=== PATIENT | female | born 1975 | race Caucasian/White ===

== ENCOUNTER 2019-03-29 11:56 | Emergency (ER) | payer MEDICAID, SELFPAY ==
[2019-03-29 11:56] VITALS: BP 199/114; PULSE 71; RESP 16; TEMP 36.8; O2SAT 97; BMI 47.5
[2019-03-29 12:16] VITALS: BP 168/93; PULSE 70; RESP 16; O2SAT 97
--- NOTE | 2019-03-29 12:20 | EKG12_ITS ---
Test Reason : HTN Blood Pressure : / mmHG Vent. Rate : 070 BPM Atrial Rate : 070 BPM P-R Int : 174 ms QRS Dur : 084 ms QT Int : 394 ms P-R-T Axes : 012 007 006 degrees QTc Int : 425 ms Normal sinus rhythm Poor R wave progression Abnormal ECG Confirmed by STEPHANIE CONNER, FLOYD ([id number]), purchasing expeditor ANATOLY EDWARDS ([id number]) on 03/31/2019 4:04:03 PM Referred By: ZOE Confirmed By:FLOYD BROWN MD
[2019-03-29] MEDS: Ketorolac 30 MG/ML Syringe IV (12:49)
[2019-03-29 13:04] LABS: Basophil# 0.04 X10^3/uL; Basophil% 0.4 % (0-1); Eosinophil# 0.18 X10^3/uL; Eosinophils% 1.8 % (0-5); Hematocrit 38.7 % (37-47); Hemoglobin 12.7 g/dl (12.0-15.0); Mean Corp Hgb Conc 32.8 g/gl (32-36); Mean Corpuscular Hgb 27.5 pg (27.0-32.0); Mean Corpuscular Volume 83.8 fL (81-99); Mean Platelet Vol. 10.1 fl (6.2-12.0); Monocyte# 0.81 X10^3/uL; Monocyte% 8.3 % (0-10); Neutrophil % 51.4 % (47-70); Platelet Count 282 K/mm3 (150-450); RBC Distribution Width CV 13.9 % (11.6-14.6); RBC Distribution Width SD 41.7 fl (35.1-43.9); Red Blood Count 4.62 M/mm3 (4.2-5.4); White Blood Count 9.7 K/mm3 (4.4-11.0)
[2019-03-29 13:10] LABS: POSITIVE COUNT NO; POSITIVE DIFFERENTIAL NO; POSITIVE MORPHOLOGY NO
[2019-03-29 13:11] LABS: Anion Gap 7 (5-15); BUN 15 mg/dL (7-18); BUN/Creat Ratio 19.6 RATIO (10-20); Calcium,Total 8.3 mg/dL (8.5-10.1); Chloride 105 mmol/L (98-107); Creatinine, Serum 0.77 mg/dL (0.55-1.02); EST Glomerular Filtration Rate 88 mL/min (>60); Est Glom Filt Rate - Afr Amer 107 mL/min (>60); Estimated Creatinine Clearance 86.52 ml/min; Glucose 95 mg/dL (74-106); Potassium 3.7 mmol/L (3.5-5.1); Sodium Level 137 mmol/L (136-145)
--- NOTE | 2019-03-29 14:22 | ED.VISSUMM ---
- ER Visit Summary Date of Service: 03/29/19 Chief Complaint: Hypertension History of Present Illness: The patient is a 43 F with history of hypertension sent in by [facility]. Patient had left knee revision surgery on March 27 and . [facility] nurse visited for the first time today. Blood pressure was elevated and patient was told to the emergency room. She states her diastolic pressure was between 100-115 and her systolic pressure was between 190 and 205. Patient reports a mild headache but states she has headaches regularly and does not know if it is related to her blood pressure. She did state that her blood pressure was high a couple times during her recent hospital stay. She did recently have her medications adjusted by her primary care physician. Physical Examination: Blood pressure in triage was 199/114. At the time of my examination blood pressure is 168/93. Remainder of vitals are normal. Patient sitting upright in bed no acute distress. Heart is regular rate and rhythm. Lungs sounds are clear. Abdomen is soft nontender. Extremity examination reveals left knee dressing clean with no surrounding signs of cellulitis. Test Results: CBC and chemistry studies unremarkable. EKG is sinus at 70 with no acute ischemia. Emergency Department Course and Treatment: Patient was initially given Toradol for her headache. Blood pressure remained unchanged. She was given a dose of labetalol 10 mg IV. At this time blood pressure is 141/82. Patient is resting comfortably on repeat exam. She does have a home blood pressure cuff and will monitor blood pressure twice a day for the next several days. If she has any further symptoms she is to return to the emergency room. Otherwise she is to follow-up with her primary care physician next week with her blood pressure readings. Treatment Plan: [] Disposition: Discharge Impression: Hypertension, improved This note was generated with [employer] software. It may contain incorrect words, spelling, and punctuation that were not noted in review of the chart prior to signing ED Disposition - Plan for ED Patient: Disposition: Home or Assisted Living Instructions: ED HTN Established Referrals: Ezio Lu MD [Primary Care Provider] - 5-7 Days
[2019-03-29 14:23] VITALS: BP 141/82; PULSE 66; RESP 20; O2SAT 97
--- NOTE | 2019-03-29 14:25 | ED.DCSUM_ITS ---
- ER Visit Summary Date of Service: 03/29/19 Chief Complaint: Hypertension History of Present Illness: The patient is a 43 F with history of hypertension sent in by [facility]. Patient had left knee revision surgery on March 27 and . Home health nurse visited for the first time today. Blood pressure was elevated and patient was told to the emergency room. She states her diastolic pressure was between 100-115 and her systolic pressure was between 190 and 205. Patient reports a mild headache but states she has headaches regularly and does not know if it is related to her blood pressure. She did state that her blood pressure was high a couple times during her recent hospital stay. She did r ecently have her medications adjusted by her primary care physician. Physical Examination: Blood pressure in triage was 199/114. At the time of my examination blood pressure is 168/93. Remainder of vitals are normal. Patient sitting upright in bed no acute distress. Heart is regular rate and rhythm. Lungs sounds are clear. Abdomen is soft nontender. Extremity examination reveals left knee dressing clean with no surrounding signs of cellulitis. Test Results: CBC and chemistry studies unremarkable. EKG is sinus at 70 with no acute ischemia. Emergency Department Course and Treatment: Patient was initially given Toradol for her headache. Blood pressure remained unchanged. She was given a dose of labetalol 10 mg IV. At this time blood pressure is 141/82. Patient is resting comfortably on repeat exam. She does have a home blood pressure cuff and will monitor blood pressure twice a day for the next several days. If she has any further symptoms she is to return to the emergency room. Otherwise she is to follow-up with her primary care physician next week with her blood pressure readings. Treatment Plan: [] Disposition: Discharge Impression: Hypertension, improved This note was generated with [employer] dictation software. It may contain incorrect words, spelling, and punctuation that were not noted in review of the chart prior to signing ED Disposition - Plan for ED Patient: Disposition: Home or Assisted Living Instructions: ED HTN Established Referrals: Ezio Lu MD [Primary Care Provider] - 5-7 Days
[2019-03-29 14:45] VITALS: BP 149/89; PULSE 63; RESP 16; O2SAT 97
== END 2019-03-29 14:46 | disposition home or self-care (01) ==
PROVIDERS: Emergency Provider Emergency Medicine; Family Provider Family Medicine; PCP Family Medicine
DX: I10 Essential (primary) hypertension (principal); E78.00 Pure hypercholesterolemia, unspecified; F32.9 Major depressive disorder, single episode, unspecified; Z79.84 Long term (current) use of oral hypoglycemic drugs; Z79.899 Other long term (current) drug therapy
CPT/HCPCS: 80048; 85025; 93005; 96374; 96375; 99284; A4216

== ENCOUNTER → 2021-08-26 12:41 | Outpatient (CLI) | payer MEDICAID, SELFPAY ==
[2021-08-26] MEDS: Methacholine Chloride 18 ml neb kit INHALATION (12:56)
--- NOTE | 2021-08-26 15:37 | BRONCHALL_ITS ---
Bronchoprovocation Challenge Bronchoprovocation Challenge Bronchoprovocation Challenge: BRONCHOPROVOCATION STUDY INTERPRETATION Brief HPI: Patient is a 46 year old female, currently under the care of Dr. Grant, who presents to [facility] for a bronchoprovocation study secondary to diagnosis of dyspnea. Respiratory therapist reports good effort and reproducible results. Interpretation: Initial spirometry showed no large airways obstructive ventilatory defect. The patient was then given increasingly concentrated doses of methacholine in a stepwise/standardized fashion, using a modified ATS protocol. The patient had a significant reduction in FEV1 by 30% and a calculated PD20 of 0.112. Impression: Positive bronchoprovocation study in a range consistent with increased bronchial reactivity
== END ==
PROVIDERS: PCP Family Medicine
DX: R06.02 Shortness of breath (principal)
CPT/HCPCS: 94070; 95070

== ENCOUNTER 2021-11-10 18:19 | Observation (INO) | payer MEDICAID, SELFPAY ==
[2021-11-10 18:20] VITALS: BP 107/67; PULSE 87; RESP 18; TEMP 36.2; O2SAT 91; BMI 50.9
[2021-11-10 18:38] VITALS: BP 107/67; PULSE 87; RESP 18; TEMP 36.2; O2SAT 91; O2SAT 95
--- NOTE | 2021-11-10 18:46 | EX.ED.DYSGE1 ---
HPI History of Present Illness Chief Complaint: Shortness of Breath Informant: patient Narrative Narrative: Patient presents with primary complaint for concern for dehydration. She states she started with Covid symptoms on 03 November. Patient is vaccinated with 2 Pfizer vaccines the last of which was July. She had positive test done on the and reported on the . She started with sore throat headache but that is better. She has had some nausea vomiting and diarrhea almost the whole time. She really just cannot keep anything down. She states she has a cough but it is not the worst part of the illness and she is not short of breath. Her complaint is the generalized weakness and the nausea vomiting. She was sent in for possible dehydration and IV fluids. Nothing really makes her symptoms better. Trying to eat or drink makes the nausea vomiting worse. She has not had blood in the vomitus or stool. PFSH PFSH Home Medications carvedilol 25 mg PO BID 09/27/13 [History Last Taken Unknown] pravastatin 20 mg PO DAILY 09/27/13 [History Last Taken Unknown] colestipol 1 g PO BID 03/29/19 [History Last Taken Unknown] ergocalciferol (vitamin D2) [Vitamin D] 50,000 unit PO Q7D 03/29/19 [History Last Taken Unknown] losartan-hydrochlorothiazide 1 ea PO DAILY 03/29/19 [History Last Taken Unknown] metformin 500 mg PO BID 03/29/19 [History Last Taken Unknown] oxybutynin chloride 10 mg PO DAILY 03/29/19 [History Last Taken Unknown] potassium chloride 8 meq PO BID 03/29/19 [History Last Taken Unknown] Allergy/AdvReac Type Severity Reaction Status Date / Time No Known Allergies Allergy Verified 11/10/21 18:22 Social History Smoking Status: Never smoker [facility] ED Constitutional Constitutional ED: Reports chills and fever(s) Eyes Eyes: Denies change in vision ENT ENT ED: Reports rhinorrhea and sore throat Cardiovascular Cardiovascular: Denies chest pain or palpitations Respiratory/Chest Respiratory/Chest: Reports cough; Denies dyspnea or sputum Gastrointestinal Gastrointestinal: Reports diarrhea, nausea and vomiting; Denies abdominal pain, constipation or melena Genitourinary Genitourinary ED: Denies dysuria, hematuria or urinary frequency Musculoskeletal Musculoskeletal: Denies myalgias Integumentary Denies rash Neurologic Neurologic: Reports headache(s); Denies weakness Psychiatric Psychiatric: Denies anxiety or depression Endocrine Endocrinology: Denies polydipsia or polyuria Allergic/Immunologic Allergic/Immunologic ED: Denies mouth swelling or urticaria EXAM Physical Exam Const Vital Signs: 11/10/21 18:20 11/10/21 18:38 11/10/21 20:37 Temperature 97.1 F L 97.1 F L Temperature Source Temporal Temporal Pulse Rate 87 87 84 Respiratory Rate 18 18 20 H Respiratory Effort Normal Non-Labored Respiratory Depth Normal Respiratory Pattern Normal Blood Pressure 107/67 107/67 121/87 H Blood Pressure Mean 80 80 98 Pulse Ox 91 91 95 Oxygen Delivery Method Room Air Room Air Patient is nontoxic. However, she does look a little tired. She does look dry. She does not look dyspneic. Positive well nourished, well developed and obese General Appearance ED: well developed and NAD Nutritional Appearance: obese HEENT Reports dry mucous membranes Negative for trauma or tenderness Mouth ED: Yes dry mucous membranes Mouth: dry mucous membranes Eyes General Eye ED: Negative for pale conjunctiva or scleral icterus Neck no JVD Chest Wall inspection of chest normal Resp normal respiratory effort and clear to auscultation bilaterally Resp Narrative: Despite being Covid positive and having some cough, her lungs sound completely clear. Her saturations are 97 to 98% on room air while I am in the room. Effort and Inspection: Negative for pain with movement Auscultation: Negative for rales, rhonchi or wheezes Cardio regular rate, regular rhythm and no murmurs GI normal to inspection, nondistended, normoactive bowel sounds and non-tender Palpation: soft Back/Spine no CVA tenderness Extremity normal to inspection General Extremety ED: Negative for edema or tenderness General Extremity: Negative for edema Neuro oriented x3 Sensorium / Orientation: alert Psych mental status grossly normal Skin no rashes or lesions noted and no wounds MDM MDM MDM Narrative Medical decision making narrative: Patient CBC is unremarkable. Electrolytes show mildly low potassium but it shows significant elevation of her creatinine above her baseline showing an acute kidney injury. Creatinine is 2.58 when it is normally about 0.8. LFTs are overall unremarkable. Lipase is unremarkable. I will give this patient IV fluids because of her significant acute kidney injury. However, she does have Covid. She is not having pulmonary symptoms but she could develop more symptoms with IV fluids. But we need to get her kidneys more functional. She will need to be watched closely. For this reason I do not think she would do well as an outpatient. I will add a chest x-ray and Covid test so we have a baseline and verification of this. I discussed case with hospitalist. Lab Data Attestation: I reviewed the patient's lab results. Labs: Laboratory Results - last 24 hr 11/10/21 11/10/21 19:29 19:29 WBC 5.4 RBC 4.71 Hgb 13.3 Hct 39.2 MCV 83.2 MCH 28.2 MCHC 33.9 RDW Std Deviation 39.8 RDW Coeff of Jania 13.2 Plt Count 216 MPV 10.6 Immature Gran % (Auto) 0.200 Neut % (Auto) 63.7 Lymph % (Auto) 26.6 Gregory % (Auto) 8.7 Eos % (Auto) 0.6 Baso % (Auto) 0.2 Absolute Neuts (auto) 3.5 Absolute Lymphs (auto) 1.44 Nucleated RBC % 0 Sodium 133 L Potassium 3.2 L Chloride 98 Carbon Dioxide 24.0 Anion Gap 11 BUN 43 H Creatinine 2.58 H Estim Creat Clear Calc 25.04 Est GFR (MDRD) Af Amer 26 L Est GFR (MDRD) Non-Af 21 L BUN/Creatinine Ratio 16.7 Glucose 131 H Calcium 8.7 Total Bilirubin 1.00 AST 28 ALT 44 Alkaline Phosphatase 46 Total Protein 8.0 Albumin 3.4 Globulin 4.6 H Albumin/Globulin Ratio 0.7 L Lipase 353 Discharge Plan Triage Chief Complaint: Shortness of Breath ED Provider: Maximiliano Shen Dx/Rx/DC Orders Clinical Impression: Acute kidney injury, COVID, Dehydration Prescriptions: No Action carvedilol 25 MG tablet 25 mg PO BID RF: 0 pravastatin 20 MG tablet 20 mg PO DAILY RF: 0 potassium chloride 8 MEQ capsule, extended release 8 meq PO BID RF: 0 ergocalciferol (vitamin D2) [Vitamin D2] 50,000 UNIT capsule 50,000 unit PO Q7D RF: 0 oxybutynin chloride 5 MG tablet 10 mg PO DAILY RF: 0 colestipol 1 GM tablet 1 g PO BID RF: 0 metformin 500 MG tablet extended release 24hr 500 mg PO BID RF: 0 losartan-hydrochlorothiazide 1 EACH tablet 1 ea PO DAILY RF: 0 Primary Care Provider: Ezio Lu Referrals: Ezio Lu MD [Primary Care Provider] - Disposition Disposition: Acute Care Hospital [facility]
[2021-11-10 19:34] LABS: Absolute Lymphocyte Count 1.44 X10^3/uL (0.83-4.51); Absolute Neutrophil Count 3.5 X10^3/uL (2.0-7.7); Basophil# 0.01 X10^3/uL; Basophil% 0.2 % (0-1); Eosinophil# 0.03 X10^3/uL; Eosinophils% 0.6 % (0-5); Hematocrit 39.2 % (37-47); Hemoglobin 13.3 g/dL (12.0-15.0); Lymphocyte # 1.44 X10^3/ul (0.83-4.51); Lymphocyte % 26.6 % (19-41); Mean Corp Hgb Conc 33.9 g/dL (32-36); Mean Corpuscular Hgb 28.2 pg (27.0-32.0); Mean Corpuscular Volume 83.2 fL (81-99); Mean Platelet Vol. 10.6 fl (6.2-12.0); Monocyte# 0.47 X10^3/uL; Monocyte% 8.7 % (0-10); NRBC Flagged by Analyzer 0 % (0-5); Neutrophil # 3.45 X10^3/uL (2.7-7.7); Neutrophil % 63.7 % (47-70); Platelet Count 216 K/mm3 (150-450); RBC Distribution Width CV 13.2 % (11.6-14.6); RBC Distribution Width SD 39.8 fl (35.1-43.9); Red Blood Count 4.71 M/mm3 (4.2-5.4); White Blood Count 5.4 K/mm3 (4.4-11.0)
[2021-11-10 19:49] LABS: ALB/GLOB Ratio 0.7 RATIO (0.9-2.4); AST(SGOT) 28 U/L (15-37); Alanine Aminotransfer ALT/SGPT 44 U/L (13-56); Albumin, Serum 3.4 g/dL (3.2-5.0); Alkaline Phosphatase 46 U/L (45-117); Anion Gap 11 (5-15); BUN 43 mg/dL (7-18); BUN/Creat Ratio 16.7 RATIO (10-20); Calcium,Total 8.7 mg/dL (8.5-10.1); Chloride 98 mmol/L (98-107); Creatinine, Serum 2.58 mg/dL (0.55-1.02); EST Glomerular Filtration Rate 21 mL/min (>60); Est Glom Filt Rate - Afr Amer 26 mL/min (>60); Estimated Creatinine Clearance 25.04 ml/min; Globulin 4.6 g/dL (2.2-4.2); Glucose 131 mg/dL (74-106); Lipase 353 U/L (73-393); Potassium 3.2 mmol/L (3.5-5.1); Sodium Level 133 mmol/L (136-145)
[2021-11-10 20:37] VITALS: BP 121/87; PULSE 84; RESP 20; O2SAT 95
[2021-11-10] MEDS: 0.9% Normal Saline 1,000 ML 999 ML IV (20:40)
[2021-11-10 21:14] VITALS: BP 152/79; PULSE 82; RESP 23; TEMP 37.3; O2SAT 97
--- NOTE | 2021-11-10 21:50 | RAD_ITS ---
INDICATION: covid cough EXAMINATION/TECHNIQUE: X-RAY - XR Chest 1 View COMPARISON: 03/08/2016. FINDINGS: Patchy bilateral airspace opacities. The cardiomediastinal silhouette is unremarkable. No pleural effusion or pneumothorax. No acute osseous abnormalities. RAD/Chest 1 View (Portable) IMPRESSION: Patchy bilateral airspace opacities consistent with Covid pneumonia. Electronically Signed: Jignesh Betancur MD at 21:41 EST Tel , Service support ,
[2021-11-10 22:33] VITALS: BMI 46.7
--- NOTE | 2021-11-10 22:34 | PCS.PANDOC ---
PANDEMIC DOCUMENTATION INITIATED: Date: 06/27/2021 Time: 190
[2021-11-10 22:51] VITALS: BP 105/60; PULSE 77; RESP 18; TEMP 36.9; O2SAT 97
[2021-11-11] VITALS (7 sets, daily range): BP systolic 121–167; BP diastolic 56–88; PULSE 76–108; RESP 12–18; TEMP 36.2–36.8; O2SAT 93–100
--- NOTE | 2021-11-11 00:35 | PCM.HP.STD ---
HPI - General General Date of Admission: 11/10/21 HPI Narrative LAVON SOLO, is a 46 F who presents with primary complaint of GI upset and in ability to tolerate p.o. intake. The patient is vaccinated for Covid but did start having Covid symptoms on the 03 of November, which she was tested for and this returned positive (COVID). The patient started having issues with nausea vomiting and diarrhea on November 04 and had generalized weakness as a result. She does have a dry cough but does not have any fevers, and has hx of asthma. She has a home inhaler but has not been taking it because when she inhales deeply she only coughs. She has no hematuria or dysuria. She follows with the family doctor, but has never seen a loan processing supervisor. The patient has no prior issues with kidney injury but does state that diabetes and kidney failure run in the family including her mother with kidney failure. Patient had a chest x-ray which showed a patchy pneumonia consistent with Covid and on lab work was noted to be hypokalemic to 3.3 and given oral potassium for repletion. Her creatinine noted increased to 2.58 from baseline of 0.8 and this is new, and the patient was admitted to medicine service for further management. The patient was not hypoxic throughout her stay in the ED. Patient does not smoke and does not drink alcohol [facility] Medical History (Updated 11/11/21 @ 00:[address] Edgardo Sandoval MD) Asthma CPAP (continuous positive airway pressure) dependence Hypertension Migraines Non-smoker Sleep apnea Home Medications carvedilol 25 mg PO BID 09/27/13 [History Last Taken 11/10/21] pravastatin 20 mg PO DAILY 09/27/13 [History Last Taken 11/09/21] colestipol 1 g PO BID 03/29/19 [History Last Taken 11/10/21] ergocalciferol (vitamin D2) [Vitamin D] 50,000 unit PO Q7D 03/29/19 [History Last Taken 11/06/21] losartan-hydrochlorothiazide 1 ea PO DAILY 03/29/19 [History Last Taken 11/10/21] metformin 500 mg PO BID 03/29/19 [History Last Taken 11/10/21] potassium chloride 8 meq PO BID 03/29/19 [History Last Taken 11/10/21] amlodipine 2.5 PO QHS 11/10/21 [History Last Taken 11/09/21] Allergy/AdvReac Type Severity Reaction Status Date / Time No Known Allergies Allergy Verified 11/10/21 18:22 Surgical History (Updated 11/10/21 @ 22:47 by Maria C Fields) History of cholecystectomy Social History Smoking Status: Never smoker ROS ROS Narrative + Cough, no SOB. + diarrhea, nausea and vomiting No fevers chills, abdominal pain, cp, chest racing, rashes, myalgias, joint problems, hematuria, dysuria, no syncope No trouble seeing hearing swallowing Vital Signs Vital Signs Vital Signs: 11/10/21 18:20 11/10/21 18:38 11/10/21 20:37 Temperature 97.1 F L 97.1 F L Temperature Source Temporal Temporal Pulse Rate 87 87 84 Respiratory Rate 18 18 20 H Respiratory Effort Normal Non-Labored Respiratory Depth Normal Respiratory Pattern Normal Blood Pressure 107/67 107/67 121/87 H Blood Pressure Mean 80 80 98 Blood Pressure Source Blood Pressure Position Blood Pressure Location Pulse Ox 91 91 95 Oxygen Delivery Method Room Air Room Air 11/10/21 21:14 11/10/21 22:51 11/10/21 23:02 Temperature 99.2 F H 98.4 F Temperature Source Oral Oral Pulse Rate 82 77 Respiratory Rate 23 H 18 Respiratory Effort Normal Respiratory Depth Normal Respiratory Pattern Normal Blood Pressure 152/79 H 105/60 Blood Pressure Mean 103 75 Blood Pressure Source Monitor Blood Pressure Position Semi-Fowlers Blood Pressure Location Left Arm Pulse Ox 97 97 Oxygen Delivery Method Room Air Room Air Room Air Weight Weight: 281 lb 4.957 oz Body Mass Index (BMI) 46.7 Physical Exam Const alert and no apparent distress Constitutional Narrative: obese HEENT normocephalic and head/scalp atraumatic Eyes PERRL and EOMs intact bilaterally Resp normal respiratory effort Resp Narrative: no wheezes. Mildly coursened breath sounds Cardio regular rate, regular rhythm and S1 normal heart sound GI normal to inspection, nondistended, normoactive bowel sounds, soft to palpation, non-tender and non-distended Extremity normal to inspection Skin no rashes or lesions noted Neuro Sensorium / Orientation: alert Psych affect normal Results Lab / Micro Data Result Diagrams: 11/10/21 19:29 11/10/21 19:29 Labs: Laboratory Results - last 24 hr 11/10/21 19:29: WBC 5.4, RBC 4.71, Hgb 13.3, Hct 39.2, MCV 83.2, MCH 28.2, MCHC 33.9, RDW Std Deviation 39.8, RDW Coeff of Jania 13.2, Plt Count 216, MPV 10.6, Immature Gran % (Auto) 0.200, Neut % (Auto) 63.7, Lymph % (Auto) 26.6, [place] % (Auto) 8.7, Eos % (Auto) 0.6, Baso % (Auto) 0.2, Absolute Neuts (auto) 3.5, Absolute Lymphs (auto) 1.44, Nucleated RBC % 0 11/10/21 19:29: Sodium 133 L, Potassium 3.2 L, Chloride 98, Carbon Dioxide 24.0, Anion Gap 11, BUN 43 H, Creatinine 2.58 H, Estim Creat Clear Calc 25.04, Est GFR (MDRD) Af Amer 26 L, Est GFR (MDRD) Non-Af 21 L, BUN/Creatinine Ratio 16.7, Glucose 131 H, Calcium 8.7, Total Bilirubin 1.00, AST 28, ALT 44, Alkaline Phosphatase 46, Total Protein 8.0, Albumin 3.4, Globulin 4.6 H, Albumin/Globulin Ratio 0.7 L, Lipase 353 Radiology Impression Chest X-Ray 11/10/21 21:50 IMPRESSION: Patchy bilateral airspace opacities consistent with Covid pneumonia. Electronically Signed: Jignesh Betancur MD at 21:41 EST Tel , Service support , Assessment & Plan Assessment/Plan (1) Acute kidney injury: (2) COVID: (3) Dehydration: (4) Diabetes mellitus, type 2: PLAN: COVID infection Pneumonia -Not hypoxic, no significant pulmonary compromise or signs of sepsis. No dexamethasone at this time. -PCR pending -Continue Covid contact precautions -Continue duo nebs while awake -Mild hyponatremia due to poor p.o. intake. Monitor daily sodium Acute kidney injury -Suspect this is prerenal etiology but will need further testing -Creatinine 2.58 from baseline of 0.77 -Check urine lites and urinalysis, Pr/Cr ratio -Renal ultrasound -Given 1 L in the ED, will continue 1 L lactated Ringer's at 100 an hour -Check CPK Diabetes T2 -Patient does not seem to know how well it is controlled -Continue carbohydrate diet -Hold Metformin -Continue routine glucose checks and sliding scale insulin -Blood glucose 130 on admission HTN - Resume Norvasc, Coreg BID and hold losartan/hctz combo pill 2/2 HUGO Full Code Carb consistent Diet Full code Renally adjusted Lovenox 30 mg qd Edgardo Sandoval MD Charges/Coding Visit Charges Inpatient E&M: 14105 Init Hosp L3
[2021-11-11] MEDS: Lactated Ringers 1,000 ML 100 ML IV (00:50)
[2021-11-11 06:34] LABS: Absolute Lymphocyte Count 1.74 X10^3/uL (0.83-4.51); Basophil# 0.01 X10^3/uL; Basophil% 0.2 % (0-1); Eosinophil# 0.05 X10^3/uL; Eosinophils% 1.2 % (0-5); Hematocrit 38.4 % (37-47); Hemoglobin 12.7 g/dL (12.0-15.0); Lymphocyte # 1.74 X10^3/ul (0.83-4.51); Lymphocyte % 40.7 % (19-41); Mean Corp Hgb Conc 33.1 g/dL (32-36); Mean Corpuscular Hgb 27.7 pg (27.0-32.0); Mean Corpuscular Volume 83.8 fL (81-99); Mean Platelet Vol. 10.5 fl (6.2-12.0); Monocyte# 0.42 X10^3/uL; Monocyte% 9.8 % (0-10); NRBC Flagged by Analyzer 0 % (0-5); Neutrophil # 2.04 X10^3/uL (2.7-7.7); Neutrophil % 47.9 % (47-70); Platelet Count 199 K/mm3 (150-450); RBC Distribution Width CV 13.2 % (11.6-14.6); RBC Distribution Width SD 40.2 fl (35.1-43.9); Red Blood Count 4.58 M/mm3 (4.2-5.4); White Blood Count 4.3 K/mm3 (4.4-11.0)
[2021-11-11 06:41] LABS: Bedside Glucose 92 mg/dL (70-110)
[2021-11-11 07:07] LABS: Anion Gap 12 (5-15); BUN 44 mg/dL (7-18); BUN/Creat Ratio 23.4 RATIO (10-20); Calcium,Total 8.5 mg/dL (8.5-10.1); Chloride 101 mmol/L (98-107); Creatinine, Serum 1.88 mg/dL (0.55-1.02); EST Glomerular Filtration Rate 31 mL/min (>60); Est Glom Filt Rate - Afr Amer 37 mL/min (>60); Estimated Creatinine Clearance 34.36 ml/min; Glucose 93 mg/dL (74-106); Magnesium 2.7 mg/dL (1.6-2.6); Potassium 2.9 mmol/L (3.5-5.1); Sodium Level 134 mmol/L (136-145)
[2021-11-11 07:09] LABS: CPK Total, Creatine Kinase 348 U/L (26-192)
[2021-11-11] MEDS: Ipratropium/Albuterol Sulfate 3 ML AMPUL.NEB INHALATION ×3 (07:37→19:43)
[2021-11-11 09:56] LABS: Hemoglobin A1c 6.3 % (3.8-5.6)
[2021-11-11] MEDS: amLODIPine 2.5 MG Tablet PO (09:57)
[2021-11-11] MEDS: Carvedilol 25 MG Tablet PO ×2 (09:57→22:59)
[2021-11-11] MEDS: Potassium Chloride 10mEq/100mL 10 MEQ/100 ML IV.SOLN. 100 MEQ IV BOLUS ×4 (09:57→14:50)
[2021-11-11] MEDS: Enoxaparin 30 MG/0.3 ML Syringe SC (09:57)
[2021-11-11 13:00] LABS: Mucous, Urine 0 SEEN /hpf (<or=2+); Red Blood Cells-Urine 0 SEEN /hpf (0-5); Squamous Epithelial Cells - UA 0 SEEN /hpf (5-10)
[2021-11-11 13:06] LABS: Color, Urine Yellow (Yellow); Glucose, Dipstick Normal (Normal); Ketone-Dipstick Negative (Negative); Leukocyte Esterase-Dipstick 25 /ul (Negative); Nitrite-Dipstick Negative (Negative); Occult Blood-Urine 10 /ul (Negative); Protein-Dipstick Negative (Negative); Urine Bilirubin Dipstick Negative (Negative); Urine Clarity Clear (Clear); Urine Urobilinogen Normal (Normal)
[2021-11-11 13:18] LABS: Bacteria 2+ /hpf (None Seen); White Blood Cells 0-5 SEEN /hpf (0-5)
--- NOTE | 2021-11-11 14:25 | PN.HOSP_ITS ---
Subjective Subjective Patient seen and examined. She felt better today. She says she had 2 episodes of diarrhea overnight. Review of systems otherwise negative. She remains on room air. Objective Data Objective Data Vital Signs: Vital Signs Temp Pulse Resp BP Pulse Ox 98.2 F 76 16 167/56 H 98 11/11/21 08:50 11/11/21 13:13 11/11/21 13:13 11/11/21 08:50 11/11/21 08:50 Oxygen Delivery Method Room Air Weight: 281 lb 4.957 oz Body Mass Index (BMI) 46.7 Intake & Output: Intake and Output for Last 24 Hours 11/09/21 11/10/21 11/11/21 23:59 23:59 23:59 Intake Total 1000 / 1000 200 / 200 Balance 1000 / 1000 200 / 200 Medical Nutrition Assessment Dietitian: Malnutrition Criteria Met Start: 11/11/21 13:24 Freq: Status: Active Protocol: Document 11/11/21 13:24 AG (Rec: 11/11/21 13:24 AG [id number]) Nutrition Malnutrition Evidence of Malnutrition Exists Yes Malnutrition (severe): Acute Illness/Injury Evidenced By Suboptimal Energy Intake ( Severe),Weight Loss (Severe) Clinical Problem Acute Disease or Injury Related Malnutrition Etiology severe, acute malnutrition r/t inadequate energy intake, GI dysfunction Signs/Symptoms as evidenced by unintentional wt loss of 24.7#/8% x 1 week, estimated PO intake meeting < 50% of estimated energy needs >5 days Status Active Problem Recommendation Dietitian Recommendations/Changes Will liberalize diet to regular d/t acute malnutrition and add 4oz ensure clear BID w/ meals for additional calories/protein if consumed. Lab / Micro Data Result Diagrams: 11/11/21 05:50 11/11/21 05:50 Labs: Laboratory Results - last 24 hr 11/10/21 19:29: WBC 5.4, RBC 4.71, Hgb 13.3, Hct 39.2, MCV 83.2, MCH 28.2, MCHC 33.9, RDW Std Deviation 39.8, RDW Coeff of Jania 13.2, Plt Count 216, MPV 10.6, Immature Gran % (Auto) 0.200, Neut % (Auto) 63.7, Lymph % (Auto) 26.6, [place] % (Auto) 8.7, Eos % (Auto) 0.6, Baso % (Auto) 0.2, Absolute Neuts (auto) 3.5, Absolute Lymphs (auto) 1.44, Nucleated RBC % 0 11/10/21 19:29: Sodium 133 L, Potassium 3.2 L, Chloride 98, Carbon Dioxide 24.0, Anion Gap 11, BUN 43 H, Creatinine 2.58 H, Estim Creat Clear Calc 25.04, Est GFR (MDRD) Af Amer 26 L, Est GFR (MDRD) Non-Af 21 L, BUN/Creatinine Ratio 16.7, Glucose 131 H, Calcium 8.7, Total Bilirubin 1.00, AST 28, ALT 44, Alkaline Phosphatase 46, Total Protein 8.0, Albumin 3.4, Globulin 4.6 H, Albumin/Globulin Ratio 0.7 L, Lipase 353 11/10/21 20:44: COVID-19 (ALFONZO) Detected 11/11/21 05:50: WBC 4.3 L, RBC 4.58, Hgb 12.7, Hct 38.4, MCV 83.8, MCH 27.7, MCHC 33.1, RDW Std Deviation 40.2, RDW Coeff of Jania 13.2, Plt Count 199, MPV 10.5, Immature Gran % (Auto) 0.200, Neut % (Auto) 47.9, Lymph % (Auto) 40.7, [place] % (Auto) 9.8, Eos % (Auto) 1.2, Baso % (Auto) 0.2, Absolute Neuts (auto) 2.0, Absolute Lymphs (auto) 1.74, Nucleated RBC % 0 11/11/21 05:50: Sodium 134 L, Potassium 2.9 L, Chloride 101, Carbon Dioxide 21.0, Anion Gap 12, BUN 44 H, Creatinine 1.88 H, Estim Creat Clear Calc 34.36, Est GFR (MDRD) Af Amer 37 L, Est GFR (MDRD) Non-Af 31 L, BUN/Creatinine Ratio 23.4 H, Glucose 93, Calcium 8.5, Magnesium 2.7 H 11/11/21 05:50: Total Creatine Kinase 348 H 11/11/21 05:50: Hemoglobin A1c 6.3 H 11/11/21 06:18: POC Glucose 92 11/11/21 12:51: Urine Color Yellow, Urine Clarity Clear, Urine pH 5.0, Ur Specific [place] 1.010, Urine Protein Negative, Urine Glucose (UA) Normal, Urine Ketones Negative, Urine Occult Blood 10 H, Urine Nitrite Negative, Urine Bilirubin Negative, Urine Urobilinogen Normal, Ur Leukocyte Esterase 25 H, Urine RBC 0 SEEN, Urine WBC 0-5 SEEN, Ur Squamous Epith Cells 0 SEEN, Urine Bacteria 2+, Urine Mucus 0 SEEN Radiography Diagnostic Testing: Radiology Impression Chest X-Ray 11/10/21 21:50 IMPRESSION: Patchy bilateral airspace opacities consistent with Covid pneumonia. Electronically Signed: Jignesh Betancur MD at 21:41 EST Tel , Service support , Physical Exam Const alert, oriented x3 and no apparent distress Constitutional Narrative: morbidly obese Exam Limitations: no limitations HEENT head/scalp atraumatic Head and Scalp: normocephalic Mouth: dry mucous membranes Eyes PERRL, EOMs intact bilaterally and conjunctivae normal Neck no lymphadenopathy and supple Resp normal respiratory effort, no retractions, no use of accessory muscles and clear to auscultation bilaterally Cardio regular rate, regular rhythm, S1 normal heart sound, S2 normal heart sound and no murmurs GI normal to inspection, nondistended, normoactive bowel sounds, soft to palpation, non-tender and non-distended Extremity normal to inspection and full ROM Peripheral Pulses: Yes pulses 2+ throughout Skin no rashes or lesions noted Neuro oriented x3, CN's II-XII intact bilaterally and moves all extremities Sensorium / Orientation: awake and alert Psych affect normal Assessment & Plan Assessment/Plan (1) COVID: (2) Dehydration: PLAN: #COVID 19 infection * asymptomatic * breathing treatment with bronchodilators * hold off on decadron as she is on room air. * #HUGO * resolving. Cr is trending downwards * Cr today is down to 1.88 from 2.58 on admission. CPK was mildly elevated at 348. * renal USG pending * continue gentle hydration with iVF and trend Cr * #Hypokalemia: Potassium is 2.9. Will replace aggressively and trend. #Type 2 diabetes mellitus * Metformin on hold on account of HUGO. * Insulin sliding scale. Checks AC at bedtime. * #Hypertension: On Norvasc and Coreg. Losartan and hydrochlorothiazide on hold due to HUGO. DVT prophylaxis: lovenox, renally dosed. Charges/Coding Visit Charges Inpatient E&M: 27805 Subs Hosp L2
[2021-11-11 17:15] LABS: Bedside Glucose 124 mg/dL (70-110)
[2021-11-11 17:15] LABS: Bedside Glucose 146 mg/dL (70-110)
--- NOTE | 2021-11-11 17:55 | CASEMGMT ---
JUANJO CORNELIUS TECHNICAL ASSISTANCE CONSULTANT CM placed call to pt's room for initial transition planning/care coordination assessment. JUANJO CORNELIUS introduced self and role at [facility]. Pt voices understanding and consents to assessment at this time. Pt is A/O at this time and answers all questions appropriately. Care providers, pharmacy, and demographics verified/updated at this time. PCP: Dr Lu Specialists: Sees automotive glass installer and charge weigher @ [facility], but does not remember their names. Preferred Pharmacy: [facility] Insurance: [employer] Prescription Benefit: Yes Living Will/HPOA: Pt does not currently have LW/HCPOA and declines info at this time. Pt made aware that she can contact as an out-pt and make appt in the future if she decides she would like to talk with someone about this or would like to utilize [facility] social work for advanced directive completion. LNOK: , Julien Living Arrangements: Lives w/ and 2 children-12 and 16 yrs old in 2-story home w/3 steps to enter. and children all have COVID but are doing well. will be out of isolation tomorrow. P independent. Transportation: Pt states drives self and states no transportation concerns at this time. also drives. DME: Pt has a CPAP HHC/SNF: No hx of SNF. Has had HHC in the past after knee replacement Pt wishes to return home and states has no concerns with going home at time of discharge. CM or nursing to follow for any discharge planning/needs. Pt voices no concerns/needs at this time. PLAN: Home w/family support and discharge plans in place Tobias GARCIA RN, CM
[2021-11-11] MEDS: Pravastatin 20 MG Tablet PO (22:58)
[2021-11-11] MEDS: 0.9% Saline Lock 10 ML Syringe IV (23:05)
[2021-11-12 00:06] LABS: Bedside Glucose 140 mg/dL (70-110)
[2021-11-12 00:25] LABS: Mucous, Urine 0 SEEN /hpf (<or=2+); Red Blood Cells-Urine 0 SEEN /hpf (0-5); Squamous Epithelial Cells - UA 0 SEEN /hpf (5-10)
[2021-11-12 00:38] LABS: Color, Urine Yellow (Yellow); Glucose, Dipstick 50 mg/dl (Normal); Ketone-Dipstick Negative (Negative); Leukocyte Esterase-Dipstick 25 /ul (Negative); Nitrite-Dipstick Negative (Negative); Occult Blood-Urine 10 /ul (Negative); Protein-Dipstick Negative (Negative); Urine Bilirubin Dipstick Negative (Negative); Urine Clarity Clear (Clear); Urine Urobilinogen Normal (Normal)
[2021-11-12 00:47] LABS: Urine Sodium 51 mmol/L (Not Establ.)
[2021-11-12 00:51] LABS: Protein, Urine (Random) 13.3 mg/dL (<11.9); Protein:Creat Ratio 216 mg/g CRE (0-200)
[2021-11-12 00:54] LABS: Bacteria RARE /hpf (None Seen); White Blood Cells 0-5 SEEN /hpf (0-5)
[2021-11-12 03:42] VITALS: BP 100/61; PULSE 71; RESP 18; TEMP 36.4; O2SAT 96
[2021-11-12 05:59] LABS: Absolute Lymphocyte Count 1.86 X10^3/uL (0.83-4.51); Absolute Neutrophil Count 2.2 X10^3/uL (2.0-7.7); Basophil# 0.02 X10^3/uL; Basophil% 0.4 % (0-1); Eosinophil# 0.08 X10^3/uL; Eosinophils% 1.7 % (0-5); Hematocrit 38.2 % (37-47); Hemoglobin 12.5 g/dL (12.0-15.0); Lymphocyte # 1.86 X10^3/ul (0.83-4.51); Lymphocyte % 40.5 % (19-41); Mean Corp Hgb Conc 32.7 g/dL (32-36); Mean Corpuscular Hgb 27.4 pg (27.0-32.0); Mean Corpuscular Volume 83.8 fL (81-99); Mean Platelet Vol. 10.7 fl (6.2-12.0); Monocyte# 0.42 X10^3/uL; Monocyte% 9.2 % (0-10); NRBC Flagged by Analyzer 0 % (0-5); Platelet Count 222 K/mm3 (150-450); RBC Distribution Width CV 13.2 % (11.6-14.6); RBC Distribution Width SD 40.2 fl (35.1-43.9); Red Blood Count 4.56 M/mm3 (4.2-5.4); White Blood Count 4.6 K/mm3 (4.4-11.0)
[2021-11-12 06:44] LABS: Anion Gap 7 (5-15); BUN 36 mg/dL (7-18); BUN/Creat Ratio 30.5 RATIO (10-20); Calcium,Total 8.7 mg/dL (8.5-10.1); Chloride 103 mmol/L (98-107); Creatinine, Serum 1.18 mg/dL (0.55-1.02); EST Glomerular Filtration Rate 53 mL/min (>60); Est Glom Filt Rate - Afr Amer 64 mL/min (>60); Estimated Creatinine Clearance 54.75 ml/min; Glucose 137 mg/dL (74-106); Potassium 2.9 mmol/L (3.5-5.1); Sodium Level 138 mmol/L (136-145)
[2021-11-12 06:48] VITALS: PULSE 80; RESP 18
[2021-11-12] MEDS: Ipratropium/Albuterol Sulfate 3 ML AMPUL.NEB INHALATION ×2 (06:48→13:33)
[2021-11-12 06:49] VITALS: O2SAT 95
[2021-11-12 07:06] LABS: Bedside Glucose 118 mg/dL (70-110)
[2021-11-12 08:41] VITALS: BP 126/91; PULSE 81; RESP 16; TEMP 36.6; O2SAT 96
[2021-11-12] MEDS: Carvedilol 25 MG Tablet PO (08:44)
[2021-11-12] MEDS: Enoxaparin 30 MG/0.3 ML Syringe SC (08:44)
[2021-11-12] MEDS: amLODIPine 2.5 MG Tablet PO (08:44)
[2021-11-12] MEDS: Potassium Chloride Oral Tablet 20 MEQ 40 MEQ PO (09:07)
[2021-11-12] MEDS: Potassium Chloride 10mEq/100mL 10 MEQ/100 ML IV.SOLN. 100 MEQ IV BOLUS ×4 (09:07→12:59)
[2021-11-12] MEDS: Insulin Lispro 100 UNIT/ML INSULN.PEN SC (11:49)
[2021-11-12 12:00] LABS: Bedside Glucose 157 mg/dL (70-110)
[2021-11-12 13:02] VITALS: BP 141/96; PULSE 75; RESP 18; TEMP 36.9; O2SAT 95
[2021-11-12 13:34] VITALS: PULSE 76; RESP 17
--- NOTE | 2021-11-12 14:18 | PN.HOSP_ITS ---
Subjective Subjective Patient seen and examined. She has no active complaints and feels well. Review of systems otherwise negative. Potassium is down to 2.9. Objective Data Objective Data Vital Signs: Vital Signs Temp Pulse Resp BP Pulse Ox 98.5 F 76 17 141/96 H 95 11/12/21 13:02 11/12/21 13:34 11/12/21 13:34 11/12/21 13:02 11/12/21 13:02 Oxygen Delivery Method Room Air Weight: 281 lb 4.957 oz Body Mass Index (BMI) 46.7 Intake & Output: Intake and Output for Last 24 Hours 11/10/21 11/11/21 11/12/21 23:59 23:59 23:59 Intake Total 1000 / 1000 3300 / 3300 700 / 700 Output Total 500 / 500 Balance 1000 / 1000 2800 / 2800 700 / 700 Medical Nutrition Assessment Dietitian: Malnutrition Criteria Met Start: 11/11/21 13:24 Freq: Status: Active Protocol: Document 11/11/21 13:24 AG (Rec: 11/11/21 13:24 AG [id number]) Nutrition Malnutrition Evidence of Malnutrition Exists Yes Malnutrition (severe): Acute Illness/Injury Evidenced By Suboptimal Energy Intake ( Severe),Weight Loss (Severe) Clinical Problem Acute Disease or Injury Related Malnutrition Etiology severe, acute malnutrition r/t inadequate energy intake, GI dysfunction Signs/Symptoms as evidenced by unintentional wt loss of 24.7#/8% x 1 week, estimated PO intake meeting < 50% of estimated energy needs >5 days Status Active Problem Recommendation Dietitian Recommendations/Changes Will liberalize diet to regular d/t acute malnutrition and add 4oz ensure clear BID w/ meals for additional calories/protein if consumed. Lab / Micro Data Result Diagrams: 11/12/21 04:30 11/12/21 04:30 Labs: Laboratory Results - last 24 hr 11/11/21 11:28: POC Glucose 124 H 11/11/21 17:09: POC Glucose 146 H 11/11/21 23:01: POC Glucose 140 H 11/12/21 00:15: Urine Color Yellow, Urine Clarity Clear, Urine pH 6.0, Ur Specific [place] 1.010, Urine Protein Negative, Urine Glucose (UA) 50 H, Urine Ketones Negative, Urine Occult Blood 10 H, Urine Nitrite Negative, Urine Bilirubin Negative, Urine Urobilinogen Normal, Ur Leukocyte Esterase 25 H, Urine RBC 0 SEEN, Urine WBC 0-5 SEEN, Ur Squamous Epith Cells 0 SEEN, Urine Bacteria RARE, Urine Mucus 0 SEEN 11/12/21 00:15: U Random Total Protein 13.3 H, Urine Creatinine 61.60, Protein/Creatinin Ratio 216 H, Urine Potassium 10.0 11/12/21 00:15: Ur Random Sodium 51, Urine Creatinine 62.40 11/12/21 04:30: WBC 4.6, RBC 4.56, Hgb 12.5, Hct 38.2, MCV 83.8, MCH 27.4, MCHC 32.7, RDW Std Deviation 40.2, RDW Coeff of Jania 13.2, Plt Count 222, MPV 10.7, Immature Gran % (Auto) 0.200, Neut % (Auto) 48.0, Lymph % (Auto) 40.5, [place] % (Auto) 9.2, Eos % (Auto) 1.7, Baso % (Auto) 0.4, Absolute Neuts (auto) 2.2, Absolute Lymphs (auto) 1.86, Nucleated RBC % 0 11/12/21 04:30: Sodium 138, Potassium 2.9 L, Chloride 103, Carbon Dioxide 28.0, Anion Gap 7, BUN 36 H, Creatinine 1.18 H, Estim Creat Clear Calc 54.75, Est GFR (MDRD) Af Amer 64, Est GFR (MDRD) Non-Af 53 L, BUN/Creatinine Ratio 30.5 H, Glucose 137 H, Calcium 8.7 11/12/21 06:46: POC Glucose 118 H 11/12/21 11:45: POC Glucose 157 H Physical Exam Const alert, oriented x3 and no apparent distress Constitutional Narrative: morbidly obese Exam Limitations: no limitations HEENT normocephalic and head/scalp atraumatic Eyes PERRL, EOMs intact bilaterally and conjunctivae normal Neck no lymphadenopathy and supple Resp normal respiratory effort, no retractions, no use of accessory muscles and clear to auscultation bilaterally Cardio regular rate, regular rhythm, S1 normal heart sound, S2 normal heart sound and no murmurs GI normal to inspection, nondistended, normoactive bowel sounds, soft to palpation, non-tender and non-distended Extremity normal to inspection and full ROM Peripheral Pulses: Yes pulses 2+ throughout Skin no rashes or lesions noted Neuro oriented x3, CN's II-XII intact bilaterally and moves all extremities Sensorium / Orientation: awake and alert Psych affect normal Assessment & Plan Assessment/Plan (1) COVID: (2) Dehydration: PLAN: #COVID 19 infection * asymptomatic; remains on room air. * breathing treatment with bronchodilators * hold off on decadron as she is on room air. * #HUGO * resolving. Cr is trending downwards and is 1.18 today. * likely pre-renal as it resolved with IVF administration * #Hypokalemia: Potassium is still 2.9. Will replace aggressively and trend. #Type 2 diabetes mellitus * Metformin on hold on account of HUGO. * Insulin sliding scale. Checks AC at bedtime. * #Hypertension: On Norvasc and Coreg. Losartan and hydrochlorothiazide on hold due to HUGO. DVT prophylaxis: lovenox, renally dosed. Charges/Coding Visit Charges Inpatient E&M: 35056 Subs Hosp L2
--- NOTE | 2021-11-12 14:24 | PCM.DC.SUM ---
Providers Date of Admission: 11/11/21 Primary Care Physician: Dr. Ezio Lu MD Reason For Visit: ACUTE KIDNEY INJURY Diagnosis Discharge Diagnosis (1) COVID: Status: Acute Code(s): U07.1 - COVID-19 (2) Dehydration: Status: Acute Code(s): E86.0 - Dehydration Medications at Discharge Home Medications carvedilol 25 mg PO BID 09/27/13 pravastatin 20 mg PO DAILY 09/27/13 colestipol 1 g PO BID 03/29/19 ergocalciferol (vitamin D2) [Vitamin D2] 50,000 unit PO Q7D 03/29/19 losartan-hydrochlorothiazide 1 ea PO DAILY 03/29/19 metformin 500 mg PO BID 03/29/19 amlodipine 2.5 PO QHS 11/10/21 potassium chloride 20 meq PO DAILY #30 tab 11/12/21 Hospital Course Operations None Procedures None Summary of Care Provided Minutes Spent on Discharge: 45 Hospital Course: Patient is a 46-year-old female with a past medical history as outlined was admitted through the ED on 11/10/2021 with a complaint of nausea and vomiting as well as inability to tolerate oral diet. Patient has started having Covid-like symptoms on 03 November and tested positive on 03 November. Started having nausea and vomiting as well as diarrhea and generalized weakness. She had a dry cough but denied any fever. Review of systems otherwise negative. She was admitted and managed for HUGO as a creatinine was 2.58 from a baseline of 0.77 and this was thought to be due to prerenal etiology from dehydration and diarrhea as well as vomiting. Patient remained on room air for her Covid infection remained asymptomatic. Creatinine trended down with hydration fluids. Hospital course was complicated by hypokalemia which was replaced aggressively. Patient remained stable and was discharged home on 11/12/2021. Potassium was 2.9 on the day of discharge but after replacement, came up to 3.9. She was discharged on potassium chloride p.o. 20 mEq daily. She is follow-up with her primary care doctor within 1 week for recheck of her potassium. Patient seen and examined prior to discharge. She had no active complaints and felt well. Review of systems otherwise negative. Labs and vitals reviewed. Medication reviewed and reconciled. Physical Exam Const alert, oriented x3 and no apparent distress Constitutional Narrative: morbidly obese General Appearance: cooperative, comfortable and well kempt Exam Limitations: no limitations HEENT normocephalic, head/scalp atraumatic, hearing grossly normal bilaterally and moist oral mucous membranes Eyes PERRL, EOMs intact bilaterally and conjunctivae normal Neck no lymphadenopathy and supple Resp normal respiratory effort, no retractions, no use of accessory muscles and clear to auscultation bilaterally Cardio regular rate, regular rhythm, S1 normal heart sound, S2 normal heart sound and no murmurs GI normal to inspection, nondistended, normoactive bowel sounds, soft to palpation, non-tender and non-distended Extremity normal to inspection and full ROM Skin no rashes or lesions noted Neuro oriented x3, CN's II-XII intact bilaterally and moves all extremities Sensorium / Orientation: awake and alert Psych affect normal Medical Records Data Medical Nutrition Assessment Dietitian: Malnutrition Criteria Met Start: 11/11/21 13:24 Freq: Status: Active Protocol: Document 11/11/21 13:24 (Rec: 11/11/21 13:24 [id number]) Nutrition Malnutrition Evidence of Malnutrition Exists Yes Malnutrition (severe): Acute Illness/Injury Evidenced By Suboptimal Energy Intake ( Severe),Weight Loss (Severe) Clinical Problem Acute Disease or Injury Related Malnutrition Etiology severe, acute malnutrition r/t inadequate energy intake, GI dysfunction Signs/Symptoms as evidenced by unintentional wt loss of 24.7#/8% x 1 week, estimated PO intake meeting < 50% of estimated energy needs >5 days Status Active Problem Recommendation Dietitian Recommendations/Changes Will liberalize diet to regular d/t acute malnutrition and add 4oz ensure clear BID w/ meals for additional calories/protein if consumed. Weight / BMI Weight Weight: 281 lb 4.957 oz Body Mass Index (BMI) 46.7 ABG / Lab / Microbiology Data Result Diagrams: 11/12/21 04:30 11/12/21 14:51 Laboratory: Laboratory Results - last 24 hr 11/11/21 11:28: POC Glucose 124 H 11/11/21 17:09: POC Glucose 146 H 11/11/21 23:01: POC Glucose 140 H 11/12/21 00:15: Urine Color Yellow, Urine Clarity Clear, Urine pH 6.0, Ur Specific [place] 1.010, Urine Protein Negative, Urine Glucose (UA) 50 H, Urine Ketones Negative, Urine Occult Blood 10 H, Urine Nitrite Negative, Urine Bilirubin Negative, Urine Urobilinogen Normal, Ur Leukocyte Esterase 25 H, Urine RBC 0 SEEN, Urine WBC 0-5 SEEN, Ur Squamous Epith Cells 0 SEEN, Urine Bacteria RARE, Urine Mucus 0 SEEN 11/12/21 00:15: U Random Total Protein 13.3 H, Urine Creatinine 61.60, Protein/Creatinin Ratio 216 H, Urine Potassium 10.0 11/12/21 00:15: Ur Random Sodium 51, Urine Creatinine 62.40 11/12/21 04:30: WBC 4.6, RBC 4.56, Hgb 12.5, Hct 38.2, MCV 83.8, MCH 27.4, MCHC 32.7, RDW Std Deviation 40.2, RDW Coeff of Jania 13.2, Plt Count 222, MPV 10.7, Immature Gran % (Auto) 0.200, Neut % (Auto) 48.0, Lymph % (Auto) 40.5, [place] % (Auto) 9.2, Eos % (Auto) 1.7, Baso % (Auto) 0.4, Absolute Neuts (auto) 2.2, Absolute Lymphs (auto) 1.86, Nucleated RBC % 0 11/12/21 04:30: Sodium 138, Potassium 2.9 L, Chloride 103, Carbon Dioxide 28.0, Anion Gap 7, BUN 36 H, Creatinine 1.18 H, Estim Creat Clear Calc 54.75, Est GFR (MDRD) Af Amer 64, Est GFR (MDRD) Non-Af 53 L, BUN/Creatinine Ratio 30.5 H, Glucose 137 H, Calcium 8.7 11/12/21 06:46: POC Glucose 118 H 11/12/21 11:45: POC Glucose 157 H D/C Instructions Discharge Diet: Low fat / Low cholesterol and - (eat diet rich in potassium; bananas, orange juice, coconut water, etc) Call your doctor if you observe: Fever of 101 or Higher, Shortness of breath, Dizziness, Swelling in the ankles, Chest pain and Increased palpitations (irregular heartbeat) Meaningful Use Info Meaningful Use Diagnoses (Choose all that apply): None applicable Discharge Plan Admission Admit Date/Time: 11/11/21 00:21 Primary Reason for Your Visit: hypokalemia, HUGO Attending Provider: Florecita Perera Primary Care Provider: Ezio Lu Instructions Patient Instructions: Acute Kidney Failure Dc, Discharge Instructions for ..., Potassium Additional Instructions / Restrictions: remain in self isolation till November 13, 2021 Discharge Orders/Prescriptions Prescriptions: New potassium chloride 20 mEq tablet extended release 20 meq PO DAILY Qty: 30 RF: 0 Continued carvedilol 25 MG tablet 25 mg PO BID RF: 0 pravastatin 20 MG tablet 20 mg PO DAILY RF: 0 ergocalciferol (vitamin D2) [Vitamin D2] 50,000 UNIT capsule 50,000 unit PO Q7D RF: 0 colestipol 1 GM tablet 1 g PO BID RF: 0 metformin 500 MG tablet extended release 24hr 500 mg PO BID RF: 0 losartan-hydrochlorothiazide 1 EACH tablet 1 ea PO DAILY RF: 0 amlodipine 2.5 mg tablet 2.5 PO QHS RF: 0 Discontinued potassium chloride 8 MEQ capsule, extended release 8 meq PO BID RF: 0 Referrals / Follow Up: Ezio Lu MD [Primary Care Provider] - Within 2 Weeks Disposition Disposition (needs filled in before D/C Order can be placed): Home, Self Care Charges/Coding Visit Charges Inpatient E&M: 76757 Disch Hosp
[2021-11-12 15:27] LABS: Potassium 3.9 mmol/L (3.5-5.1)
== END 2021-11-12 16:23 | disposition home or self-care (01) | DRG 469 ==
LOC: ED 20:55 → MS3 11-11 04:34
PROVIDERS: Hospitalist; Admitting Provider Family Medicine; Emergency Provider Emergency Medicine; PCP Family Medicine; Visit Provider Student in an Organized Health Care Education/Training Program
DX: N17.9 Acute kidney failure, unspecified (principal); E43 Unspecified severe protein-calorie malnutrition; E66.01 Morbid (severe) obesity due to excess calories; Z68.42 Body mass index [BMI] 45.0-49.9, adult; E11.9 Type 2 diabetes mellitus without complications; Z79.84 Long term (current) use of oral hypoglycemic drugs; J12.82 Pneumonia due to coronavirus disease 2019; U07.1 COVID-19; E87.1 Hypo-osmolality and hyponatremia; E86.0 Dehydration; I10 Essential (primary) hypertension; E87.6 Hypokalemia; G47.30 Sleep apnea, unspecified; Z79.899 Other long term (current) drug therapy
CPT/HCPCS: 87635; 36415; 71045; 80048; 80053; 81001; 82550; 82570; 82962; 83036; 83690; 83735; 84132; 84133; 84156; 84300; 85025; 94640; 94667; 96361; 96365; 96366; 96372; 99218; 99251; 99284; J7120; U0005; A4216; G0378; G0463; U0003

== ENCOUNTER 2023-03-11 13:39 | Emergency (ER) | payer MEDICAID, SELFPAY ==
[2023-03-11 13:40] VITALS: BP 155/101; PULSE 109; RESP 24; TEMP 37.2; O2SAT 94
[2023-03-11 13:42] VITALS: BP 155/101; PULSE 109; RESP 24; TEMP 37.2; O2SAT 94
--- NOTE | 2023-03-11 13:53 | RAD_ITS ---
EXAM: XR CHEST, 2 VIEWS CLINICAL INDICATION: Fever TECHNIQUE: Frontal and lateral views of the chest. COMPARISON: 11.10.21 FINDINGS: LUNGS AND PLEURAL SPACES: Unremarkable. No consolidation or edema. No pneumothorax. No effusion. HEART: Unremarkable. Cardiac silhouette not enlarged. MEDIASTINUM: Central airways and mediastinal contour are unremarkable. BONES/JOINTS: There are diffuse degenerative changes of the visualized thoracic spine. SOFT TISSUES: Unremarkable. RAD/Chest PA and Lateral IMPRESSION: No acute findings in the chest. Electronically Signed: Kelvin Maher MD at 14:34 EDT ,
--- NOTE | 2023-03-11 13:56 | EDS_ITS ---
HPI <ULISES Cornejo - Last Filed: 03/11/23 17:31> History of Present Illness Chief Complaint: Fever Narrative Narrative: Patient is a 47-year-old female with history of hypertension, hyperlipidemia, obesity, diabetes who presents to the emergency department with complaints of 5 days of fever, chills. Patient denies any cough, shortness of breath, difficulty urinating, patient denies any abdominal pain, nausea vomiting diarrhea. Patient did have a foot fusion on February 16, 2023, she states to have no increased pain, everything is within normal limits. Denies any shortness of breath. Chest pain. [facility], [facility] <ULISES Cornejo - Last Filed: 03/11/23 17:31> [facility] Medical History (Updated 03/11/23 @ 17:31 by ULISES Cornejo) Asthma COVID CPAP (continuous positive airway pressure) dependence Diabetes mellitus, type 2 Hypertension Migraines Non-smoker Sleep apnea Home Medications carvedilol 25 mg tablet 25 mg PO BID htn 09/27/13 [History Last Taken 11/10/21] pravastatin 20 mg tablet 20 mg PO DAILY Check with primary doctor 09/27/13 [History Last Taken 11/09/21] colestipol 1 gram tablet 1 g PO BID Check with primary doctor 03/29/19 [History Last Taken 11/10/21] ergocalciferol (vitamin D2) 1,250 mcg (50,000 unit) capsule (Vitamin D2) 50,000 unit PO Q7D Check with primary doctor 03/29/19 [History Last Taken 11/06/21] losartan 100 mg-hydrochlorothiazide 12.5 mg tablet 1 ea PO DAILY htn 03/29/19 [History Last Taken 11/10/21] metformin 500 mg tablet,extended release 24hr 500 mg PO BID htn 03/29/19 [History Last Taken 11/10/21] amlodipine 2.5 mg tablet 2.5 PO QHS htn 11/10/21 [History Last Taken 11/09/21] potassium chloride 20 mEq tablet,extended release 20 meq PO DAILY #30 tabs 11/12 [Rx Last Taken Unknown] Allergy/AdvReac Type Severity Reaction Status Date / Time No Known Allergies Allergy Verified 03/11/23 13:40 Surgical History History of cholecystectomy Social History Smoking Status: Never smoker ROS <ULISES Cornejo - Last Filed: 03/11/23 17:31> ROS ED ROS Narrative Constitutional: Negative for weight loss, weakness. Positive for fever and chills Eyes: Negative for vision loss, vision change, double vision ENT: Negative for any sore throat, ear pain, congestion Cardiovascular: Negative for any chest pain, tightness, palpitations Respiratory: Negative for any cough, sputum production, hemoptysis, dyspnea, dyspnea on exertion, orthopnea Gastrointestinal: Negative for any abdominal pain, nausea, vomiting, diarrhea, constipation, blood in stool, blood in vomit : Negative for any urinary frequency, dysuria, retention, blood in urine Muscle skeletal: Negative for any muscle joint pain, stiffness, myalgias, arthralgias, neck pain, back pain Neurological: Negative for any headache, syncope, numbness or tingling, dizziness Skin: Negative for any rashes, lumps, itching, abrasions, lacerations Psychiatric: Negative for any depression, anxiety, stress, suicidal ideation, homicidal ideation Hematologic: Negative for any easy bruising, excessive bruising, easy bleeding Allergies: Negative for any eczema, hives, rash EXAM <ULISES Cornejo - Last Filed: 03/11/23 17:31> Physical Exam Narrative Exam Narrative: Vital signs reviewed. Patient appears to be in no distress, vital signs are stable. Slightly tachycardic. Patient does appear to be sweating at this time, could be from fever breaking. HEET: Head normocephalic atraumatic, TMs clear bilaterally. Posterior pharynx is clear, moist mucous membranes. Nares clear bilaterally. Neck: Supple with no lymphadenopathy or tenderness. No signs of meningismus, negative jolt sign. Cardiac: Regular rate and rhythm no murmurs gallops or rubs, equal peripheral pulses bilaterally. Respiratory: Lungs clear to auscultation bilaterally. No chest tenderness. Abdomen: Soft, nontender, nondistended. No abdominal bruit or pulsatile masses. No hepatosplenomegaly Extremities: No peripheral edema, no signs of gross trauma or deformity. Active full range of motion of all extremities. Patient's right lower extremity has a cast to the right lower extremity, this appears to be intact, looks well, patient has no increased pain Neuro: Cranial nerves II through XII intact, no focal neurological deficits. Skin: Clean dry and intact with no rash, purpura, petechiae, vesicles or pustules. Backs/flank: No CVA tenderness, no midline spinal tenderness, no deformity. Psych: Normal mood and affect. No SI, HI or acute psychosis. Const Vital Signs: 03/11/23 13:40 03/11/23 13:42 03/11/23 15:14 Temperature 98.9 F 98.9 F 100.0 F H Temperature Source Temporal Temporal Oral Pulse Rate 109 H 109 H Respiratory Rate 24 H 24 H Blood Pressure 155/101 H 155/101 H Blood Pressure Mean 119 119 Pulse Ox 94 94 Oxygen Delivery Method Room Air Room Air 03/11/23 15:19 Temperature 100 F H Temperature Source Oral Pulse Rate 89 Respiratory Rate 18 Blood Pressure 95/61 Blood Pressure Mean 72 Pulse Ox 96 Oxygen Delivery Method Room Air Positive well nourished and well developed General Appearance ED: well developed <Dr. Adilson Pelayo MD - Last Filed: 03/11/23 14:11> Physical Exam Const Vital Signs: 03/11/23 13:40 03/11/23 13:42 03/11/23 15:14 Temperature 98.9 F 98.9 F 100.0 F H Temperature Source Temporal Temporal Oral Pulse Rate 109 H 109 H Respiratory Rate 24 H 24 H Blood Pressure 155/101 H 155/101 H Blood Pressure Mean 119 119 Pulse Ox 94 94 Oxygen Delivery Method Room Air Room Air 03/11/23 15:19 Temperature 100 F H Temperature Source Oral Pulse Rate 89 Respiratory Rate 18 Blood Pressure 95/61 Blood Pressure Mean 72 Pulse Ox 96 Oxygen Delivery Method Room Air MDM <ULISES Cornejo - Last Filed: 03/11/23 17:31> [facility] Lab Data Labs: Laboratory Results - last 24 hr 03/11/23 03/11/23 03/11/23 14:00 14:00 17:02 WBC 4.7 RBC 4.88 Hgb 13.6 Hct 41.6 MCV 85.2 MCH 27.9 MCHC 32.7 RDW Std Deviation 43.0 RDW Coeff of Jania 13.7 Plt Count 197 MPV 10.7 Immature Gran % (Auto) 0.200 Neut % (Auto) 71.0 H Lymph % (Auto) 14.7 L Harper % (Auto) 12.6 H Eos % (Auto) 0.4 Baso % (Auto) 1.1 H Absolute Neuts (auto) 3.3 Absolute Lymphs (auto) 0.69 L Nucleated RBC % 0 Sodium 130 L Potassium 3.8 Chloride 98 Carbon Dioxide 25.0 Anion Gap 7 BUN 16 Creatinine 0.98 Estim Creat Clear Calc 65.23 Est GFR (MDRD) Af Amer 79 Est GFR (MDRD) Non-Af 65 BUN/Creatinine Ratio 16.4 Glucose 212 H Calcium 9.1 Total Bilirubin 1.50 H AST 58 H ALT 94 H Alkaline Phosphatase 67 Total Protein 7.3 Albumin 3.4 Globulin 3.9 Albumin/Globulin Ratio 0.9 Lipase 32 Urine Color Yellow Urine Clarity Sl. Cloudy Urine pH 5.0 Ur Specific [place]ok 1.015 Urine Protein 30 H Urine Glucose (UA) Normal Urine Ketones 5 H Urine Occult Blood 25 H Urine Nitrite Negative Urine Bilirubin 1 H Urine Urobilinogen 4 H Ur Leukocyte Esterase 100 H Urine RBC 0-5 SEEN Urine WBC 5-10 SEEN Ur Squamous Epith Cells 5-10 SEEN Amorphous Sediment 1+ URATE Urine Bacteria RARE Urine Mucus 0 SEEN Radiography Diagnostic Testing: Clinical Impression(s) from Imaging Studies Chest X-Ray 03/11/23 13:53 IMPRESSION: No acute findings in the chest. Electronically Signed: Kelvin Maher MD at 14:34 EDT Reading Location ID and State: [facility] / [place] , Service support , Treatment and Re-Evaluation :: Patient appears generally well, patient appears nontoxic, vital signs are stable. Patient presents to the emerged part with 4 days of intermittent fever and generalized weakness and she is concerned. Patient did receive a work-up. Differential diagnosis includes UTI, pneumonia, cellulitis Patient's laboratory studies show a normal CBC, patient's chemistries show slight hyponatremia with sodium 130, she was given 1 L of normal saline. Glucos e 212. Patient's urine was dark, she does need to drink more water. Patient's urinalysis was negative for any specific infection, she has no urinary symptoms. However this will be sent for culture. If it is positive culture we will treat. Patient's chest x-ray two-view was unremarkable. COVID-19 as well as influenza was negative. On reassessment, the patient was feeling better, the patient also has a cast to the right foot secondary to surgery and earlier in the month of February. She has no worsening pain, no redness, at this time, I do not believe it is reasonable to cut the cast off to look. However if symptoms consist she will return. Patient is happy with the plan of care, she was given Tylenol in for she goes. Her and her mother were given return precautions. All questions answered. Stable for discharge Patient diagnosed with viral infection <Dr. Adilson Pelayo MD - Last Filed: 03/11/23 14:11> MDM MDM Narrative Medical decision making narrative: I have personally performed a face to face assessment of the patient and have reviewed the KADE Note. I performed a substantive portion of the visit including all aspects of the following. My king findings include: History is 47-year-old female 5-day history of fever. Dysuria or diarrhea. No significant cough. No significant abdominal pain. 3 weeks ago had fusion of her right foot had a cast placed on its around 5 days ago. Denies any worse pain or any new leg swelling. Exam is [47-year-old female no acute distress vital signs stable afebrile. H EENT exam unremarkable. TMs posterior pharynx normal. Neck nontender no lymphadenopathy. No meningismus. Lungs clear to auscultation bilaterally. Heart regular rhythm rate about 1 5 no murmur. Chest wall nontender. Abdomen soft nondistended normal bowel sounds no peritoneal signs. Moving all 4 extremities. Right lower leg has a short leg cast that starts below the knee to the toes. Toes themselves and the proximal calf is nontender nonswollen and no redness. At this time I do not think the cast needs to be cough. Back nontender. Skin no rashes. Neurologically she is awake and alert.] Medical Decision Making [47-year-old female with 5-day history of fever. Screening labs to be obtained. Viral versus bacterial infection.] Other additions or changes: [None] History & Record Review Discussion w/independent historian: Patient Lab Data Labs: Laboratory Results - last 24 hr 03/11/23 03/11/23 03/11/23 14:00 14:00 17:02 WBC 4.7 RBC 4.88 Hgb 13.6 Hct 41.6 MCV 85.2 MCH 27.9 MCHC 32.7 RDW Std Deviation 43.0 RDW Coeff of Jania 13.7 Plt Count 197 MPV 10.7 Immature Gran % (Auto) 0.200 Neut % (Auto) 71.0 H Lymph % (Auto) 14.7 L Harper % (Auto) 12.6 H Eos % (Auto) 0.4 Baso % (Auto) 1.1 H Absolute Neuts (auto) 3.3 Absolute Lymphs (auto) 0.69 L Nucleated RBC % 0 Sodium 130 L Potassium 3.8 Chloride 98 Carbon Dioxide 25.0 Anion Gap 7 BUN 16 Creatinine 0.98 Estim Creat Clear Calc 65.23 Est GFR (MDRD) Af Amer 79 Est GFR (MDRD) Non-Af 65 BUN/Creatinine Ratio 16.4 Glucose 212 H Calcium 9.1 Total Bilirubin 1.50 H AST 58 H ALT 94 H Alkaline Phosphatase 67 Total Protein 7.3 Albumin 3.4 Globulin 3.9 Albumin/Globulin Ratio 0.9 Lipase 32 Urine Color Yellow Urine Clarity Sl. Cloudy Urine pH 5.0 Ur Specific [place] 1.015 Urine Protein 30 H Urine Glucose (UA) Normal Urine Ketones 5 H Urine Occult Blood 25 H Urine Nitrite Negative Urine Bilirubin 1 H Urine Urobilinogen 4 H Ur Leukocyte Esterase 100 H Urine RBC 0-5 SEEN Urine WBC 5-10 SEEN Ur Squamous Epith Cells 5-10 SEEN Amorphous Sediment 1+ URATE Urine Bacteria RARE Urine Mucus 0 SEEN Radiography Diagnostic Testing: Clinical Impression(s) from Imaging Studies Chest X-Ray 03/11/23 13:53 IMPRESSION: No acute findings in the chest. Electronically Signed: Kelvin Maher MD at 14:34 EDT Reading Location ID and State: [facility] / [place] , Service support , Discharge Plan Triage Chief Complaint: Fever Other Complaint: Headache Nausea/Vomiting ED Midlevel Provider: Juvenal Cook ED Provider: Adilson Pelayo Dx/Rx/DC Orders Clinical Impression: Fever, Hx of viral illness Instructions: ED Fever Control (Adult) Prescriptions: No Action carvedilol 25 MG tablet 25 mg PO BID pravastatin 20 MG tablet 20 mg PO DAILY ergocalciferol (vitamin D2) [Vitamin D2] 50,000 UNIT capsule 50,000 unit PO Q7D colestipol 1 GM tablet 1 g PO BID metformin 500 MG tablet extended release 24hr 500 mg PO BID losartan-hydrochlorothiazide 1 EACH tablet 1 ea PO DAILY amlodipine 2.5 mg tablet 2.5 PO QHS Label Comments: Take 1 tablet by mouth once daily. potassium chloride 20 mEq tablet extended release 20 meq PO DAILY Qty: 30 0RF Primary Care Provider: Ezio Lu Referrals: Ezio Lu MD [Primary Care Provider] - 3-5 Days if not improving Activity Restrictions/Additional Instructions: Tylenol and Motrin for any fever. Plenty of fluids and rest. Follow-up with your doctor if not improving. If the fever continues and we do not have a source they will need to remove your cast and look at your surgical wound to ensure that is not infected. Disposition Disposition: Home, Self Care
[2023-03-11 14:00] VITALS: BMI 51.9
[2023-03-11] MEDS: 0.9% Normal Saline 1,000 ML 1000 ML IV (14:03)
[2023-03-11] MEDS: Ondansetron 4 MG/2 ML Vial IV (14:03)
[2023-03-11] MEDS: Ketorolac 15 MG/ML Vial IV (14:04)
[2023-03-11 14:09] LABS: Absolute Lymphocyte Count 0.69 X10^3/uL (0.83-4.51); Absolute Neutrophil Count 3.3 X10^3/uL (2.0-7.7); Basophil# 0.05 X10^3/uL; Basophil% 1.1 % (0-1); Eosinophil# 0.02 X10^3/uL; Eosinophils% 0.4 % (0-5); Hematocrit 41.6 % (37-47); Hemoglobin 13.6 g/dL (12.0-15.0); Lymphocyte # 0.69 X10^3/ul (0.83-4.51); Lymphocyte % 14.7 % (19-41); Mean Corp Hgb Conc 32.7 g/dL (32-36); Mean Corpuscular Hgb 27.9 pg (27.0-32.0); Mean Corpuscular Volume 85.2 fL (81-99); Mean Platelet Vol. 10.7 fl (6.2-12.0); Monocyte# 0.59 X10^3/uL; Monocyte% 12.6 % (0-10); NRBC Flagged by Analyzer 0 % (0-5); Neutrophil # 3.33 X10^3/uL (2.7-7.7); Platelet Count 197 K/mm3 (150-450); RBC Distribution Width CV 13.7 % (11.6-14.6); Red Blood Count 4.88 M/mm3 (4.2-5.4); White Blood Count 4.7 K/mm3 (4.4-11.0)
[2023-03-11 14:26] LABS: ALB/GLOB Ratio 0.9 RATIO (0.9-2.4); AST(SGOT) 58 U/L (15-37); Alanine Aminotransfer ALT/SGPT 94 U/L (13-56); Albumin, Serum 3.4 g/dL (3.2-5.0); Alkaline Phosphatase 67 U/L (45-117); Anion Gap 7 (5-15); BUN 16 mg/dL (7-18); BUN/Creat Ratio 16.4 RATIO (10-20); Calcium,Total 9.1 mg/dL (8.5-10.1); Chloride 98 mmol/L (98-107); Creatinine, Serum 0.98 mg/dL (0.55-1.02); EST Glomerular Filtration Rate 65 mL/min (>60); Est Glom Filt Rate - Afr Amer 79 mL/min (>60); Estimated Creatinine Clearance 65.23 ml/min; Globulin 3.9 g/dL (2.2-4.2); Glucose 212 mg/dL (74-106); Lipase 32 U/L (13-75); Potassium 3.8 mmol/L (3.5-5.1); Protein, Total 7.3 g/dL (6.4-8.2); Sodium Level 130 mmol/L (136-145)
[2023-03-11 15:14] VITALS: TEMP 37.8
[2023-03-11 15:19] VITALS: BP 95/61; PULSE 89; RESP 18; TEMP 37.7; O2SAT 96
[2023-03-11 17:09] LABS: Mucous, Urine 0 SEEN /hpf (<or=2+)
[2023-03-11 17:10] LABS: Color, Urine Yellow (Yellow); Glucose, Dipstick Normal (Normal); Ketone-Dipstick 5 mg/dl (Negative); Leukocyte Esterase-Dipstick 100 /ul (Negative); Nitrite-Dipstick Negative (Negative); Occult Blood-Urine 25 /ul (Negative); Protein-Dipstick 30 mg/dl (Negative); Specific Gravity, Urine 1.015 (1.002-1.030); Urine Clarity Sl. Cloudy (Clear); Urine Urobilinogen 4 mg/dl (Normal)
[2023-03-11 17:21] LABS: Urine Bilirubin Dipstick 1 mg/dL (Negative)
[2023-03-11 17:22] LABS: White Blood Cells 5-10 SEEN /hpf (0-5)
[2023-03-11 17:23] LABS: Amorphous Sediment 1+ URATE; Bacteria RARE /hpf (None Seen); Red Blood Cells-Urine 0-5 SEEN /hpf (0-5); Squamous Epithelial Cells - UA 5-10 SEEN /hpf (5-10)
[2023-03-11] MEDS: Acetaminophen 500 MG Tablet 1000 MG PO (17:32)
[2023-03-11 17:34] VITALS: PULSE 18
== END 2023-03-11 17:37 | disposition home or self-care (01) ==
PROVIDERS: Nurse Practitioner; Emergency Provider Emergency Medicine; PCP Family Medicine; Visit Provider Emergency Medicine
DX: R50.9 Fever, unspecified (principal); E11.9 Type 2 diabetes mellitus without complications; R11.2 Nausea with vomiting, unspecified; E78.5 Hyperlipidemia, unspecified; I10 Essential (primary) hypertension; Z99.89 Dependence on other enabling machines and devices; Z79.899 Other long term (current) drug therapy; Z79.84 Long term (current) use of oral hypoglycemic drugs
CPT/HCPCS: 71046; 80053; 81001; 83690; 85025; 87077; 87086; 87088; 87186; 87428; 96361; 96374; 96375; 99282; J7030; A4216; J2405

== ENCOUNTER 2023-08-06 15:52 | Emergency (ER) | payer MEDICAID, SELFPAY ==
[2023-08-06 15:53] VITALS: BP 148/98; PULSE 82; RESP 16; TEMP 36.8; O2SAT 97; BMI 52.7
--- NOTE | 2023-08-06 17:20 | EDS_ITS ---
HPI <ASAD Valladares - Last Filed: 08/06/23 20:09> History of Present Illness Chief Complaint: Lower Extremity Injury Narrative Narrative: Patient presenting today with concerns that she has a DVT in her right lower extremity. She reports that she has had pain in her right calf since Sunday. She reports traveling this weekend to [place] in her car and sat all week and watching movies while there. She denies history of blood clots, recent surgeries/procedures. She denies any fever, chest pain, and shortness of breath. PFSH <SAAD Valladares - Last Filed: 08/06/23 20:09> [facility] Medical History Asthma COVID CPAP (continuous positive airway pressure) dependence Diabetes mellitus, type 2 Hypertension Migraines Non-smoker Sleep apnea Home Medications carvedilol 25 mg tablet 25 mg PO BID htn 09/27/13 [History Last Taken 11/10/21] pravastatin 20 mg tablet 20 mg PO DAILY Check with primary doctor 09/27/13 [History Last Taken 11/09/21] colestipol 1 gram tablet 1 g PO BID Check with primary doctor 03/29/19 [History Last Taken 11/10/21] ergocalciferol (vitamin D2) 1,250 mcg (50,000 unit) capsule (Vitamin D2) 50,000 unit PO Q7D Check with primary doctor 03/29/19 [History Last Taken 11/06/21] losartan 100 mg-hydrochlorothiazide 12.5 mg tablet 1 ea PO DAILY htn 03/29/19 [History Last Taken 11/10/21] metformin 500 mg tablet,extended release 24hr 500 mg PO BID htn 03/29/19 [History Last Taken 11/10/21] amlodipine 2.5 mg tablet 2.5 mg PO QHS htn 11/10/21 [History Last Taken 11/09/21] potassium chloride 20 mEq tablet,extended release 20 meq PO DAILY #30 tabs 11/12/21 [Rx Last Taken Unknown] Allergy/AdvReac Type Severity Reaction Status Date / Time No Known Allergies Allergy Verified 08/06/23 15:58 Surgical History History of cholecystectomy Social History Smoking Status: Never smoker ROS <SAAD Valladares - Last Filed: 08/06/23 20:09> ROS ED Constitutional Constitutional ED: Denies chills or fever(s) Cardiovascular Cardiovascular: Denies chest pain Respiratory/Chest Respiratory/Chest: Denies cough or dyspnea Gastrointestinal Gastrointestinal: Denies abdominal pain, nausea or vomiting Musculoskeletal Musculoskeletal: Reports myalgias; Denies arthralgias Integumentary Denies rash Neurologic Neurologic: Denies weakness EXAM <SAAD Valladares - Last Filed: 08/06/23 20:09> Physical Exam Const Vital Signs: 08/06/23 15:53 Temperature 98.2 F Temperature Source Temporal Pulse Rate 82 Respiratory Rate 16 Blood Pressure 148/98 H Blood Pressure Mean 114 Pulse Ox 97 Oxygen Delivery Method Room Air Positive well nourished, well developed and no apparent distress General Appearance ED: well developed HEENT Reports normocephalic and head/scalp atraumatic Mouth ED: Yes moist mucous membranes normal Eyes PERRL and EOMs intact bilaterally Neck full ROM and supple Chest Wall inspection of chest normal Resp normal respiratory effort and clear to auscultation bilaterally Cardio regular rate and regular rhythm GI soft to palpation, non-tender, non-distended and no masses Back/Spine normal ROM and normal to inspection Extremity normal to inspection and full ROM Extremity Narrative: Pain to palpation to the posterior right calf without any dimpling, erythema, or asymmetric swelling. Pulses 2+ and equal bilaterally, good capillary refill, se nsation intact. Neuro oriented x3, CN's II-XII intact bilaterally, moves all extremities, no focal motor deficits and no sensory deficits noted Sensorium / Orientation: awake and alert Psych mental status grossly normal and thought process normal Skin no rashes or lesions noted and no wounds <Dr. Mk Butcher, - Last Filed: 08/07/23 00:03> Physical Exam Const Vital Signs: 08/06/23 15:53 Temperature 98.2 F Temperature Source Temporal Pulse Rate 82 Respiratory Rate 16 Blood Pressure 148/98 H Blood Pressure Mean 114 Pulse Ox 97 Oxygen Delivery Method Room Air MDM <SAAD Valladares - Last Filed: 08/06/23 20:09> MDM MDM Narrative Medical decision making narrative: Patient presenting with concerns that she could have a DVT due to pain in her right calf. Venous duplex ultrasound will be obtained. She does not want anything for pain at this time. Ultrasound is negative, there is no DVT, patient likely has a muscle strain. She has been given RICE instructions. She will be discharged home in stable condition and is comfortable with plan. Radiography Diagnostic Testing: Clinical Impression(s) from Imaging Studies Venous Duplex 08/06/23 17:23 IMPRESSION: No sonographic evidence of deep venous thrombosis. Electronically Signed: Jaleel Ortiz MD at 18:42 EDT , <Dr. Mk Butcher, DO - Last Filed: 08/07/23 00:03> [facility] Radiography Diagnostic Testing: Clinical Impression(s) from Imaging Studies Venous Duplex 08/06/23 17:23 IMPRESSION: No sonographic evidence of deep venous thrombosis. Electronically Signed: Jaleel Ortiz MD at 18:42 EDT , Treatment and Re-Evaluation :: ED attending note: I evaluated the patient in conjunction with the KADE. I agree with his/her statements and above findings. I have personally performed a face to face assessment of the patient and have reviewed the KADE Note. I performed a substantive portion of the visit including all aspects of the following. I personally saw the patient performed chart review, physical exam, reviewed labs, imaging (if obtained), and formulated a treatment and management plan. Brief history: 48-year-old female here with leg swelling concern for DVT. Denies any chest pain or shortness of breath. Patient denies active cancer, being bedridden for greater than 3 days, denies unilateral leg swelling, denies any varicose veins, denies tenderness along deep venous system. Denies major surgery within 12 weeks, recent paralysis, previous DVT. Exam: Lungs are clear, pulses are symmetric, compartments are soft. Nursing triage notes reviewed, Vital signs reviewed Constitutional: please see mdm Lungs: Clear to auscultation, No wheezing or rales. No increased work of breathing, no conversational dyspnea, no accessory muscle use, no nasal flaring. No respiratory distress noted Heart: Regular rate and rhythm, No murmurs, No rubs and No gallops, 2+ distal pulses (radial, femoral, posterior tibial) in all extremities Extremities: No edema, TTP over right calf. No discoloration of the right lower extremity. Compartments are soft. Neuro: No focal neurological deficits, cranial nerves II through XII intact, 5/5 strength in all extremities. Intact sensation to light touch in all extremities, 2+ reflexes bilateral patella dens. Normal gait. No ataxia. Skin: No rash or lesions noted MDM/plan: Chief Complaint: Right leg pain External records reviewed: Imaging reviewed: No recent DVT studies or CTs of the chest. Factors affecting care: Type 2 diabetes, hypertension MDM narrative: Patient was hemodynamically stable, afebrile, nontoxic-appearing. There was calf tenderness. There is no chest pain or shortness of breath. I considered pulmonary medicine however thought this was less likely given lack of symptomatology. I considered the following differential diagnosis: DVT, Muscle strain We will obtain a DVT ultrasound. We will dispo based on results of studies. Consults: None at this time Shared decision making: I will have a discussion with the patient and or visitors regarding risk/benefits of further testing or admission. They will be made aware of of the risk/benefits inherent in this decision they will be given the opportunity to voice understanding. Discharge Plan Triage Chief Complaint: Lower Extremity Injury ED Midlevel Provider: Jessica Avila ED Provider: Mk Butcher Dx/Rx/DC Orders Clinical Impression: Leg pain, right Instructions: ED Myalgias Prescriptions: No Action carvedilol 25 MG tablet 25 mg PO BID pravastatin 20 MG tablet 20 mg PO DAILY ergocalciferol (vitamin D2) [Vitamin D2] 50,000 UNIT capsule 50,000 unit PO Q7D colestipol 1 GM tablet 1 g PO BID metformin 500 MG tablet extended release 24hr 500 mg PO BID losartan-hydrochlorothiazide 1 EACH tablet 1 ea PO DAILY amlodipine 2.5 mg tablet 2.5 mg PO QHS Patient Comments: Take 1 tablet by mouth once daily. potassium chloride 20 mEq tablet extended release 20 meq PO DAILY Qty: 30 0RF Primary Care Provider: Ezio Lu Referrals: Ezio Lu MD [Primary Care Provider] - 1 Week if not improving Activity Restrictions/Additional Instructions: Follow-up with your PCP, you can take Tylenol for comfort. Disposition Disposition: Home, Self Care Discharge Date/Time: 08/06/23 20:02
--- NOTE | 2023-08-06 17:23 | US_ITS ---
INDICATION: Right leg pain EXAMINATION: Ultrasound US Venous Duplex LE Unilat / Limited TECHNIQUE: Cervantes scale, pulse wave, and color flow Doppler imaging was performed of the lower extremity venous system. The right greater saphenous, common femoral, femoral, popliteal, posterior tibial and peroneal veins were interrogated. COMPARISON: None. FINDINGS: There is normal compression, augmentation, and color flow signal throughout the visualized deep lower extremity veins. US/Venous Duplex Imag/Limited/Uni IMPRESSION: No sonographic evidence of deep venous thrombosis. Electronically Signed: Jaleel Ortiz MD at 18:42 EDT ,
== END 2023-08-06 20:02 | disposition home or self-care (01) ==
PROVIDERS: Emergency Provider Emergency Medicine; PCP Family Medicine; Visit Provider Emergency Medicine
DX: M79.604 Pain in right leg (principal); E11.9 Type 2 diabetes mellitus without complications; I10 Essential (primary) hypertension; Z79.899 Other long term (current) drug therapy; Z79.84 Long term (current) use of oral hypoglycemic drugs; Z90.49 Acquired absence of other specified parts of digestive tract
CPT/HCPCS: 93971; 99282